=== PATIENT | male | born 1970 | race Caucasian/White ===

== ENCOUNTER 2017-03-17 08:39 | Emergency (ER) | payer OTHER ==
[~2017-03-17] VITALS: Wt 105.0 kg
[~2017-03-17 08:39] MED LIST: IBUP800T25 PO; LEVO50TA74 PO; LORA0.5T PO; ZOC10 PO
[2017-03-17] MEDS ORDERED: DIPHENHYDRAMINE 50 MG INJ IM STA (08:52)
[2017-03-17] MEDS ORDERED: predniSONE 20 MG TAB PO STA (08:52)
[2017-03-17] MEDS ORDERED: BEN50 PO (08:57)
[2017-03-17] MEDS ORDERED: PRED20TA PO (08:57)
--- NOTE | 2017-03-17 09:59 | ERD ---
ER Documentation Chief Complaint Date/Time DATE: 03/17/17 TIME: 09:57 Chief Complaint RASH FROM POSSIBE SPIDER BITE ON WEEK AGO HPI This is a 46-year-old male presenting to the emergency department complaining of a rash on his arms and abdomen that started a week ago when he was moving boxes and helping a friend out last Sunday. Patient describes as very itchy and denies any pain, pain scale is 0 out of 10. Patient states that he went to a personal friend who gave him a penicillin shot for tetracycline and an unknown cream. Patient states that it did not provide him any relief. Patient denies any medical problems including diabetes. He denies any fevers ROS All systems reviewed and are negative except as per history of present illness. Medications Home Meds Active Scripts Diphenhydramine Hcl* (Benadryl*) 50 Mg Cap, 50 MG PO Q6H Y for ITCHING/RASH, # 30 CAP Prov:VALDEMAR LAYNE PA-C 03/17/17 Prednisone* (Prednisone*) 20 Mg Tab, 40 MG PO DAILY for 4 Days, TAB Prov:VALDEMAR LAYNE PA-C 03/17/17 Reported Medications Ibuprofen* (Ibuprofen*) 800 Mg Tab, 800 MG PO Q6H Y for PAIN, TAB 03/17/16 Simvastatin (Simvastatin) 10 Mg Tablet, 10 MG PO DAILY, #30 TAB 03/17/16 Levothyroxine Sodium* (Levothyroxine Sodium*) 50 Mcg Tablet, 50 MCG PO BEFORE BREAKFAST, #30 TAB 03/17/16 Lorazepam* (Lorazepam*) 0.5 Mg Tablet, 0.5 MG PO HS Y for ANXIETY, TAB 03/17/16 Allergies Allergies: Coded Allergies: No Known Allergy (Unverified , 09/12/16) PMhx/Soc History of Surgery: Yes (HEMICOLECTOMY, APPENDECTOMY) Anesthesia Reaction: No Hx Neurological Disorder: Yes (OCCASIONAL MICHELLE'S ) Hx Respiratory Disorders: No Hx Cardiac Disorders: No Hx Psychiatric Problems: No Hx Miscellaneous Medical Probl: Yes (HIGH CHOLESTEROL) Hx Alcohol Use: No Hx Substance Use: No Hx Tobacco Use: No Smoking Status: Never smoker Physical Exam Vitals Vital Signs Date Time Temp Pulse Resp B/P Pulse Ox O2 Delivery O2 Flow Rate FiO2 03/17/17 08:42 97.1 101 162/74 99 Physical Exam General: WD/WN, in no apparent distress, non-toxic appearing HENT: NC/AT Eyes: Conjunctiva normal Neck: Supple Pulm: Clear to auscultation, normal labored breathing; no wheezing/rales/ rhonchi heard CV: Good capillary refill GI: Non-distended, no guarding Back: No masses Ext: No clubbing, cyanosis, or edema Neuro: Moves on all fours Skin: Erythematous vesicular lesions on arms bilaterally and trunk of the abdomen, with with evidence of excoriations no induration or purulent discharge Psych: Normal mood Results 24 hrs Current Medications Medications (Trade) Dose Ordered Sig/Aye Route PRN Reason Start Time Stop Time Status Last Admin Dose Admin Diphenhydramine HCl (Benadryl) 50 mg ONCE STAT IM 03/17/17 08:52 03/17/17 08:54 DC 03/17/17 09:03 Prednisone (Prednisone) 60 mg ONCE STAT PO 03/17/17 08:52 03/17/17 08:54 DC 03/17/17 09:03 Procedures/MDM This is a 46-year-old male presenting to the emergency department with a rash for 1 week which is most likely due to an allergic contact dermatitis. There was no evidence of cellulitis, anaphylaxis, scabies, or other life-threatening dermatomal general conditions. In the ED patient was given prednisone tablet and 50 mg of Benadryl IM. Patient is suitable for discharge to follow-up with his primary care physician. Prescription for Benadryl and prednisone for the next 4 days have been provided. I discussed with him to return to the ER for any worsening signs or symptoms. Patient understands and he agrees with this plan. Departure Diagnosis: Primary Impression: Dermatitis Condition: Stable Patient Instructions: Contact Dermatitis, Dermatitis, Non-Specific Additional Instructions: Visite a contreras kasandra osman para un EXAMEN.Regrese a estas instalaciones si no se mejora derrick esperbamos o derrick le dijimos. [place] toda la medicina suleman y derrick se le indic. Regrese a estas instalaciones si no se mejora derrick esperbamos o derrick le dijimos. La medicina que se le recet puede causarle sueo.NO DEBE MANEJAR NI OPERAR MAQUINARIAS PELIGROSAS mientras esta tomando esta medicina! VALDEMAR LAYNE PA-C Mar 17, 2017 09:59
== END 2017-03-17 09:12 | disposition home or self-care (01) ==
LOC: FTE 08:39
DX: L30.9 Dermatitis, unspecified (principal)
CPT/HCPCS: 96372; J1200; J7512; Z7502